=== PATIENT | male | born 1960 | race Caucasian/White ===

== ENCOUNTER 2016-07-28 17:29 | Emergency (ER) | payer MEDICAID ==
[~2016-07-28] VITALS: Ht 193 cm; Wt 135.4 kg
[2016-07-28 17:35] VITALS: BP 159/96
[2016-07-28] MEDS ORDERED: DIPH,PERTUSS(ACELL),TET VAC/PF 0.5 ML IM-VACC ONE ×2 (18:30→18:34)
[2016-07-28] MEDS ORDERED: LIDOCAINE-MPF 2% ,5ML ONE (18:30)
[2016-07-28] MEDS ORDERED: LIDOCAINE 2%, 20ML SQ ONE (18:30)
[2016-07-28] MEDS ORDERED: BACITRACIN ZINC OINT 500U/GM, 0.9 GM ONE ×2 (18:33→19:56)
== END 2016-07-28 20:12 | disposition home or self-care (01) ==
LOC: ED 20:06
DX: S01.81XA Laceration without foreign body of other part of head, initial encounter (principal); S61.216A Laceration without foreign body of right little finger without damage to nail, initial encounter; V19.3XXA Pedal cyclist (driver) (passenger) injured in unspecified nontraffic accident, initial encounter; Y93.89 Activity, other specified; Y99.8 Other external cause status; Y92.410 Unspecified street and highway as the place of occurrence of the external cause
CPT/HCPCS: 12001; 12052; 90471; 90715